=== PATIENT | female | born 1985 | race Two or more races ===

== ENCOUNTER 2022-05-31 08:56 | Outpatient (CLI) | payer OTHER | END 2022-05-31 09:45 | disposition home or self-care (01) | LOC: PRENATAL 08:56 | PROVIDERS: ATTEND Obstetrics & Gynecology Maternal & Fetal Medicine | DX: O36.80X0 Pregnancy with inconclusive fetal viability, not applicable or unspecified (principal); O09.519 Supervision of elderly primigravida, unspecified trimester; Z3A.13 13 weeks gestation of pregnancy ==

== ENCOUNTER 2022-08-22 10:37 | Outpatient (CLI) | payer OTHER | END 2022-08-22 11:53 | disposition home or self-care (01) | LOC: PRENATAL 10:37 | PROVIDERS: ATTEND Obstetrics & Gynecology Maternal & Fetal Medicine | DX: O26.849 Uterine size-date discrepancy, unspecified trimester (principal); O26.879 Cervical shortening, unspecified trimester; Z3A.24 24 weeks gestation of pregnancy ==

== ENCOUNTER 2022-09-04 11:33 | Outpatient (CLI) | payer OTHER | END 2022-09-04 13:25 | disposition home or self-care (01) | LOC: PRENATAL 11:33 | PROVIDERS: ATTEND Obstetrics & Gynecology Maternal & Fetal Medicine | DX: O09.519 Supervision of elderly primigravida, unspecified trimester (principal); O26.879 Cervical shortening, unspecified trimester; Z3A.26 26 weeks gestation of pregnancy ==

== ENCOUNTER 2022-09-19 08:31 | Outpatient (CLI) | payer OTHER | END 2022-09-19 09:58 | disposition home or self-care (01) | LOC: PRENATAL 08:31 | PROVIDERS: ATTEND Obstetrics & Gynecology Maternal & Fetal Medicine | DX: O26.849 Uterine size-date discrepancy, unspecified trimester (principal); O26.879 Cervical shortening, unspecified trimester; O09.519 Supervision of elderly primigravida, unspecified trimester; Z3A.28 28 weeks gestation of pregnancy ==

== ENCOUNTER 2022-10-18 14:06 | Outpatient (CLI) | payer OTHER ==
[2022-10-18] MEDS ORDERED: CHILDREN'S ASPI81 MG PO (14:44)
[2022-10-18] MEDS ORDERED: PEPCID AC20 MG PO (14:44)
[2022-10-18] MEDS ORDERED: PROTONIX40 MG PO (14:44)
[2022-10-18] MEDS ORDERED: PROMETRIUM200 MG VAG (14:45)
== END 2022-10-18 19:57 | disposition home or self-care (01) ==
LOC: OBS/DEL 14:06
PROVIDERS: ATTEND Obstetrics & Gynecology
DX: O09.513 Supervision of elderly primigravida, third trimester (principal); O99.013 Anemia complicating pregnancy, third trimester; Z3A.33 33 weeks gestation of pregnancy

== ENCOUNTER 2022-11-14 16:17 | Inpatient (IN) | payer OTHER ==
[~2022-11-14] VITALS: Ht 162.6 cm; Wt 86.2 kg
[~2022-11-14 16:17] MED LIST: CHILDREN'S ASPI81 MG PO; PEPCID AC20 MG PO; PROMETRIUM200 MG VAG; PROTONIX40 MG PO
[2022-11-14] MEDS ORDERED: PRENATAL TABLE1 EAC1 PO (17:13)
== END 2022-11-16 15:41 | disposition home or self-care (01) | DRG 807 ==
LOC: LDR 16:17 → OB/GYN 16:17
PROVIDERS: ADMIT Obstetrics & Gynecology; ATTEND Obstetrics & Gynecology
PROC: 10E0XZZ Delivery of Products of Conception, External Approach (ICD-10-PCS; principal; 2022-11-14)
PROC: 0UQG7ZZ Repair Vagina, Via Natural or Artificial Opening (ICD-10-PCS; 2022-11-14)
PROC: 4A1HXCZ Monitoring of Products of Conception, Cardiac Rate, External Approach (ICD-10-PCS; 2022-11-14)
DX: O71.4 Obstetric high vaginal laceration alone (principal); Z37.0 Single live birth; Z3A.36 36 weeks gestation of pregnancy; Z20.822 Contact with and (suspected) exposure to COVID-19

== ENCOUNTER 2023-01-18 13:18 | Emergency (ER) | payer OTHER ==
[~2023-01-18] VITALS: Ht 152.4 cm; Wt 77.1 kg
[~2023-01-18 13:18] MED LIST changes: +PRENATAL TABLE1 EAC1 PO
== END 2023-01-18 16:52 | disposition home or self-care (01) ==
LOC: ER 13:18
DX: K82.8 Other specified diseases of gallbladder (principal)

== ENCOUNTER 2023-02-06 06:06 | Day surgery (SDC) | payer OTHER ==
[~2023-02-06] VITALS: Ht 162.6 cm; Wt 78.9 kg
[2023-02-06] MEDS ORDERED: PERCOCET 5-3251 EACH PO (13:35)
== END 2023-02-06 17:05 | disposition home or self-care (01) ==
LOC: CIR.AMB 06:06
PROVIDERS: ATTEND Surgery
DX: K80.10 Calculus of gallbladder with chronic cholecystitis without obstruction (principal); K82.9 Disease of gallbladder, unspecified; Z20.822 Contact with and (suspected) exposure to COVID-19